=== PATIENT | male | born 1985 ===

== ENCOUNTER 2024-09-03 09:38 | Outpatient (CLI) | payer BC | END 2024-09-03 09:39 | disposition home or self-care (01) | LOC: CSHWCC 09:38 | PROVIDERS: ATTEND Nurse Practitioner Family | DX: I87.332 Chronic venous hypertension (idiopathic) with ulcer and inflammation of left lower extremity (principal); L97.821 Non-pressure chronic ulcer of other part of left lower leg limited to breakdown of skin; D69.0 Allergic purpura | CPT/HCPCS: 97597; 99213; G0463 ==

== ENCOUNTER 2024-09-10 09:58 | Outpatient (CLI) | payer BC | END 2024-09-10 09:59 | disposition home or self-care (01) | LOC: CSHWCC 09:58 | PROVIDERS: ATTEND Nurse Practitioner Family | DX: I87.332 Chronic venous hypertension (idiopathic) with ulcer and inflammation of left lower extremity (principal); L97.821 Non-pressure chronic ulcer of other part of left lower leg limited to breakdown of skin; D69.0 Allergic purpura | CPT/HCPCS: 11042; 99212; G0463 ==

== ENCOUNTER 2024-09-17 13:31 | Outpatient (CLI) | payer BC | END 2024-09-17 13:32 | disposition home or self-care (01) | LOC: CSHWCC 13:31 | PROVIDERS: ATTEND Nurse Practitioner Family | DX: I87.332 Chronic venous hypertension (idiopathic) with ulcer and inflammation of left lower extremity (principal); L97.821 Non-pressure chronic ulcer of other part of left lower leg limited to breakdown of skin; D69.0 Allergic purpura | CPT/HCPCS: 11042; 99212; G0463 ==

== ENCOUNTER 2024-09-24 11:32 | Outpatient (CLI) | payer BC | END 2024-09-24 11:33 | disposition home or self-care (01) | LOC: CSHWCC 11:32 | PROVIDERS: ATTEND Nurse Practitioner Family | DX: I87.332 Chronic venous hypertension (idiopathic) with ulcer and inflammation of left lower extremity (principal); L97.821 Non-pressure chronic ulcer of other part of left lower leg limited to breakdown of skin; D69.0 Allergic purpura | CPT/HCPCS: 97597 ==

== ENCOUNTER 2024-10-01 08:38 | Outpatient (CLI) | payer BC | END 2024-10-01 08:39 | disposition home or self-care (01) | LOC: CSHWCC 08:38 | PROVIDERS: ATTEND Nurse Practitioner Family | DX: I87.332 Chronic venous hypertension (idiopathic) with ulcer and inflammation of left lower extremity (principal); L97.821 Non-pressure chronic ulcer of other part of left lower leg limited to breakdown of skin; D69.0 Allergic purpura | CPT/HCPCS: 97597 ==